=== PATIENT | male | born 1950 | race African-American/Black ===

== ENCOUNTER 2024-03-09 13:39 | Inpatient (IN) | payer MEDICARE, OTHER ==
[2024-03-09] MEDS ORDERED: SUCCINYLCHOLINE/SOD CL,ISO/PF 200 MG/10 ML SYRINGE FS ONE (14:07)
[2024-03-09] MEDS ORDERED: GLYCOPYRROLATE/PF 0.2 MG/ML VIAL ONE (14:07)
[2024-03-09] MEDS ORDERED: Lidocaine 2% PF 5 ML VIAL ONE (14:07)
[2024-03-09] MEDS ORDERED: PHENYLEPHRINE-NS 100 MCG/ML 10 ML SYRINGE ONE (14:07)
[2024-03-09] MEDS ORDERED: PROPOFOL 20 ML ONE (14:08)
[2024-03-09] MEDS ORDERED: Iopamidol 30 ML ONE (14:43)
[2024-03-09] MEDS ORDERED: Indomethacin 50 MG SUPP ONE (14:43)
[2024-03-09] MEDS ORDERED: hydrALAZINE 20 MG/ML VIAL ONE (15:26)
[2024-03-09] MEDS ORDERED: Ondansetron ODT 4 MG TAB PO PRN (15:28)
[2024-03-09] MEDS ORDERED: Ondansetron PF 4 MG/2 ML Vial IVP PRN (15:28)
[2024-03-09] MEDS ORDERED: Dexamethasone 20 MG/5 ML VIAL ONE (16:05)
[2024-03-09] MEDS ORDERED: Rocuronium Bromide 10 MG/ML (10ML VIAL) ONE (16:05)
[2024-03-09] MEDS ORDERED: ePHEDrine Sulfate 50 MG/10 ML VIAL ONE (16:18)
[2024-03-09] MEDS ORDERED: SUGAMMADEX SODIUM 200 MG/2 ML VIAL ONE (16:45)
[2024-03-09 18:08] VITALS: BMI 25.3
[2024-03-09] MEDS: hydrALAZINE 25 MG TAB PO SCH (20:21)
[2024-03-09] MEDS: Finasteride 5 MG TAB PO SCH (20:21)
[2024-03-09] MEDS: cloNIDine 0.1 MG TAB PO SCH (20:21)
[2024-03-09] MEDS ORDERED: EPLERENONE 25 MG PO SCH (21:00)
[2024-03-09] MEDS: Piperacillin/Tazobactam 3.375 GM in Sodium Chloride 0.9% 100 ML IVPB SCH (21:40)
[2024-03-09] MEDS: Verapamil 80 MG TAB PO SCH (21:41)
[2024-03-10] MEDS: Piperacillin/Tazobactam 3.375 GM in Sodium Chloride 0.9% 100 ML IVPB SCH (01:47)
[2024-03-10 05:59] LABS: ALT (SGPT) 407 U/L (8-55); AST (SGOT) 114 U/L (5-34); Albumin 2.8 g/dL (3.4-4.8); Alkaline Phosphatase 113 U/L (40-110); Anion Gap 11 mmol/L (10-20); BUN (Urea Nitrogen) 16 mg/dL (8.4-25.7); Bilirubin, Total 2.6 mg/dL (0.2-1.2); Calc. Creatinine Clearance 78 mL/min (70-130); Calcium 9.5 mg/dL (7.8-10.44); Carbon Dioxide 21 mmol/L (23-31); Chloride 109 mmol/L (98-107); Estimated GFR 70; Globulin 2.9 g/dL (2.4-3.5); Glucose 152 mg/dL (83-110); Potassium 3.9 mmol/L (3.5-5.1); Protein, Total 5.7 g/dL (5.8-8.1); Sodium 137 mmol/L (136-145)
[2024-03-10 06:12] LABS: #Basophils Less than 0.03 10x3/uL (0.0-0.2); #Eosinophils Less than 0.03 10x3/uL (0.0-0.7); %Basophils 0.2 % (0.0-1.0); %Lymphocytes 8.2 % (21.0-51.0); %Monocytes 12.9 % (0.0-10.0); %Neutrophils 78.2 % (42.0-75.0); Hemoglobin 11.1 g/dL (14.0-18.0); Mean Corpuscular HGB CONC 33.6 g/dL (32.0-36.0); Mean Corpuscular Hemoglobin 29.9 pg (27.0-31.0); Mean Corpuscular Volume 88.9 fL (78.0-98.0); Mean Platelet Volume 13.2 fL (7.4-10.4); Platelet Count 71 10x3/uL (130-400); RBC Distribution Width 13.3 % (11.5-14.5); Red Blood Cell (RBC) Count 3.71 mill/uL (4.70-6.10)
[2024-03-10] MEDS ORDERED: FLU (Fluad Triv) TS24-25 (65UP)/MF59C/PF 45 MCG/0.5 ML Syringe IM ONE (09:00)
[2024-03-10] MEDS: Verapamil 80 MG TAB PO SCH (09:47)
[2024-03-10] MEDS: Aspirin 81 mg Enteric Coated Tablet PO SCH (09:47)
[2024-03-10] MEDS: Pantoprazole DR 40 MG TAB PO SCH (09:48)
[2024-03-10] MEDS: Cholecalciferol 1,000 UNITS (25 MCG) TAB PO SCH (09:49)
[2024-03-10] MEDS: Losartan 25 MG TAB PO SCH (09:49)
[2024-03-10] MEDS: Docusate 100 MG CAP PO SCH (17:25)
[2024-03-10] MEDS: Cyanocobalamin (Vitamin B-12) 1,000 MCG TAB PO SCH (17:25)
[2024-03-10] MEDS: Thiamine 100 MG TAB PO SCH (17:26)
[2024-03-10] MEDS: Multivit, Therapeutic 1 TAB PO SCH (17:26)
[2024-03-10] MEDS: Folic Acid 1 MG TAB PO SCH (17:26)
[2024-03-10 21:53] VITALS: BP 155/68; TEMP 97.8
== END 2024-03-10 22:13 | disposition home or self-care (01) | DRG 417 ==
LOC: SURG A 13:47
PROVIDERS: ADMIT Internal Medicine; ATTEND Internal Medicine
PROC: 0FT44ZZ Resection of Gallbladder, Percutaneous Endoscopic Approach (ICD-10-PCS; 2024-03-08)
PROC: BF131ZZ Fluoroscopy of Gallbladder and Bile Ducts using Low Osmolar Contrast (ICD-10-PCS; 2024-03-08)
PROC: 0DJ08ZZ Inspection of Upper Intestinal Tract, Via Natural or Artificial Opening Endoscopic (ICD-10-PCS; principal; 2024-03-09)
DX: K80.42 Calculus of bile duct with acute cholecystitis without obstruction (principal); A41.51 Sepsis due to Escherichia coli [E. coli]; K85.90 Acute pancreatitis without necrosis or infection, unspecified; N17.9 Acute kidney failure, unspecified; E87.20 Acidosis, unspecified; D68.9 Coagulation defect, unspecified; D53.9 Nutritional anemia, unspecified; E86.0 Dehydration; I12.9 Hypertensive chronic kidney disease with stage 1 through stage 4 chronic kidney disease, or unspecified chronic kidney disease; D69.6 Thrombocytopenia, unspecified; Z90.49 Acquired absence of other specified parts of digestive tract; Z79.899 Other long term (current) drug therapy; Z79.891 Long term (current) use of opiate analgesic; E83.52 Hypercalcemia; E80.6 Other disorders of bilirubin metabolism; Z79.82 Long term (current) use of aspirin; R00.1 Bradycardia, unspecified; K74.60 Unspecified cirrhosis of liver; N18.31 Chronic kidney disease, stage 3a
CPT/HCPCS: 36415; 47532; 71045; 74177; 76705; 80053; 80074; 80143; 82103; 82105; 82247; 82390; 83516; 83540; 83550; 83605; 83690; 83735; 84484; 85025; 85610; 85730; 86015; 86038; 86225; 86308; 86765; 87040; 87077; 87149; 87186; 87389; 88304; 93005; 96361; 96365; 80307; C1889; J0360; J0690; J1100; J1611; J1650; J2175; J2405; J2543; J2704; J3010; J3490; J7120; Q9967